=== PATIENT | female | born 1975 | race Caucasian/White ===

== ENCOUNTER → 2019-01-13 | Outpatient (CLI) | payer MEDICAID | LOC: MC.RAD 13:44 | DX: N60.02 Solitary cyst of left breast (principal) | CPT/HCPCS: G0279 ==

== ENCOUNTER → 2019-06-10 | Outpatient (CLI) | payer MEDICAID ==
[2019-06-10] VITALS (13 sets, daily range): BP systolic 95–131; BP diastolic 64–81; PULSE 58–82
[~2019-06-10] VITALS: Ht 170.2 cm; Wt 66.2 kg
[~2019-06-10] MED LIST: ESTRACE0.5 MG PO
--- NOTE | 2019-06-10 13:50 | NUR ---
Pt to ct per ambulation. Pt positioned on table in supine position. Monitors applied to pt.
--- NOTE | 2019-06-10 14:05 | NUR ---
Dr Quezada into room and talks with pt regarding procedure.
--- NOTE | 2019-06-10 14:10 | NUR ---
Pt very anxious. Jumps when Dr Quezada putting in medication to numb skin. Orders received to given pt versed and fentanyl.
--- NOTE | 2019-06-10 14:16 | NUR ---
Specimens obtained and placed in formalin by Dr Quezada. Specimen labeled.
--- NOTE | 2019-06-10 14:17 | NUR ---
Dr Quezada places gel foam into biopsy site.
== END | disposition still patient (30) ==
LOC: COL.RAD 11:36
DX: K58.9 Irritable bowel syndrome, unspecified (principal); M54.9 Dorsalgia, unspecified; A04.8 Other specified bacterial intestinal infections; R76.8 Other specified abnormal immunological findings in serum; R74.8 Abnormal levels of other serum enzymes
CPT/HCPCS: J2250; J3010

== ENCOUNTER → 2023-10-21 | Outpatient (CLI) | payer MEDICAID | LOC: MC.RAD 10:15 | DX: Z12.31 Encounter for screening mammogram for malignant neoplasm of breast (principal); N63.20 Unspecified lump in the left breast, unspecified quadrant ==

== ENCOUNTER → 2023-10-28 | Outpatient (CLI) | payer MEDICAID | LOC: MC.RAD 12:59 | DX: N60.12 Diffuse cystic mastopathy of left breast (principal) ==

== ENCOUNTER → 2024-05-04 | Outpatient (CLI) | payer MEDICAID | LOC: MC.RAD 10:56 | DX: N60.02 Solitary cyst of left breast (principal) ==